=== PATIENT | female | born 1990 | race Caucasian/White ===

== ENCOUNTER 2017-10-15 10:40 | Emergency (ER) | payer OTHER ==
[2017-10-15] MEDS ORDERED: ONDANSETRON 4 MG/2 ML VIAL IVP ONE (11:02)
[2017-10-15] MEDS ORDERED: NS 1,000 ML IV ONE (11:02)
[2017-10-15 11:03] VITALS: RESP 16; TEMP 97.7
--- NOTE | 2017-10-15 11:24 | EDPHY ---
H & P Stated Complaint: 0 PT. states vomited x1 thinks d/t pain?,chills. denies fever/diarrhea Time Seen by Provider: 10/15/17 11:02 HPI/ROS: This patient reports onset of epigastric abdominal pain last night at 10:30 p.m. 3 hr after eating burger and fries. She states that the pain is severe and colicky in nature 10/10 peak intensity until around 3:30 a.m. when the pain diminish to its current 5/10 without intervention. She is then able to sleep and came in for evaluation of her ongoing symptoms described as achy and crampy 5/10 radiating to her back. She had 1 episode of vomiting last night that she attributes to the severe pain but has no nausea currently. She does have anorexia. Her last meal was dinner last night. She drove herself here by private vehicle for evaluation. ROS: No fevers or chills. No other constitutional symptoms HEENT: No URI symptoms. pulmonary: No cough shortness breath Cardiovascular: No lightheadedness or chest pain GI: She has had similar episodes of pain of lesser intensity periodic early in the past. She has constipation with no bowel movement over the past few days and this is not uncommon for her. She endorses a history of IBS. She states this causes her to have irregular bowels with occasional loose stools occasional constipation alternating. : No urinary symptoms. Last menstrual. Normal timing. Integumentary: No skin rash Neuro: No complaints Psychiatric: No complaints Complete review of symptoms is otherwise negative Source: Patient Exam Limitations: No limitations - Personal History LMP (Females 10-55): Extended Cycle BCP/Inj Current Tetanus Diphtheria and Acellular Pertussis (TDAP): Yes - Medical/Surgical History PMH: Obesity IBS Hx Asthma: No Hx Chronic Respiratory Disease: No Hx Diabetes: No Hx Cardiac Disease: No Hx Renal Disease: No Hx Cirrhosis: No Hx Alcoholism: No Hx HIV/AIDS: No Hx Splenectomy or Spleen Trauma: No Other PMH: med hx-none. 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 Eyes: Pupils equal and round no pallor or injection. ENT, Mouth: Mucous membranes moist. Respiratory: There are no retractions, lungs are clear to auscultation. Cardiovascular: Regular rate and rhythm. Gastrointestinal: Hypoactive bowel sounds with mild epigastric tenderness with no guarding or rebound. No organomegaly Back: No CVA tenderness Neurological: GCS 15 Skin: Warm and dry, no rashes. Musculoskeletal: Neck is supple nontender. Extremities are symmetrical, full range of motion. Psychiatric: Mood and affect are normal. DIFFERENTIAL DIAGNOSIS: After history and physical exam differential diagnosis was considered for pancreatitis, cholecystitis, gastritis, hepatitis, IBS, ureteral stone, Constitutional: Initial Vital Signs Temperature (C) 36.5 C 10/15/17 10:47 Heart Rate 96 10/15/17 10:47 Respiratory Rate 16 10/15/17 10:47 Blood Pressure 125/70 H 10/15/17 10:47 O2 Sat (%) 96 10/15/17 10:47 O2 Delivery Mode Room Air Allergies/Adverse Reactions: No Known Allergies Allergy (Verified 10/15/17 10:46) Home Medications: Medication Instructions Recorded Etonogestrel [Nexplanon] 10/15/17 HYOSCYAMINE SULFATE [LEVSIN-SL] 0.125 - 0.25 mg SL Q6 PRN #20 10/15/17 tab.subl Venlafaxine HCl 10/15/17 Medical Decision Making ED Course/Re-evaluation: IV normal saline bolus. Patient declined analgesics at this time with current pain level of 5/10 After review of her labs-normal LFTs chemistries and lipase, negative HCG mild leukocytosis I spoke with patient regarding the results. She does have 510 white cells and 2+ bacteria on her UA but no UTI symptoms. Will send this for culture since she has no active urinary symptoms an borderline findings on urinalysis terms of infection. I do not think she has active biliary disease given completely normal biliary labs/LFTs. I counseled regarding this. Rather , I suspect that she may have IBS flare and/or mild viral illness. Will send her home on Levsin for symptoms in light diet until she improves. She understands need to return should she develop any worsening symptoms despite the treatment plan. I also referred her to Dr. Quintanilla if [id number] parker for any ongoing symptoms - Data Points Laboratory Results: Laboratory Results 10/15/17 11:25 10/15/17 11:25 10/15/17 10/15/17 10/15/17 12:02 11:25 11:25 WBC RBC Hgb Hct MCV MCH MCHC RDW Plt Count MPV Neut % (Auto) Lymph % (Auto) [place] % (Auto) Eos % (Auto) Baso % (Auto) Nucleat RBC Rel Count Absolute Neuts (auto) Absolute Lymphs (auto) Absolute Monos (auto) Absolute Eos (auto) Absolute Basos (auto) Absolute Nucleated RBC Immature Gran % Immature Gran # Sodium 141 mEq/L mEq/L (134-144) Potassium 4.1 mEq/L mEq/L (3.5-5.2) Chloride 103 mEq/L mEq/L (97-110) Carbon Dioxide 24 mEq/l mEq/l (22-31) Anion Gap 14 mEq/L mEq/L (8-16) BUN 9 mg/dL mg/dL (7-23) Creatinine 0.6 mg/dL mg/dL (0.6-1.0) Estimated GFR > 60 Glucose 85 mg/dL mg/dL (70-100) Calcium 9.4 mg/dL mg/dL (8.5-10.4) Total Bilirubin 0.6 mg/dL mg/dL (0.1-1.4) AST 16 IU/L IU/L (14-46) ALT 28 IU/L IU/L (9-52) Alkaline Phosphatase 71 IU/L IU/L (38-126) Total Protein 7.4 g/dL g/dL (6.3-8.2) Albumin 3.9 g/dL g/dL (3.5-5.0) Lipase 61 IU/L IU/L (23-300) Beta HCG, Qual NEGATIVE Urine Color YELLOW Urine Appearance CLEAR Urine pH 7.5 (5.0-7.5) Ur Specific Carlotta 1.010 (1.002-1.030) Urine Protein NEGATIVE (NEGATIVE) Urine Ketones NEGATIVE (NEGATIVE) Urine Blood NEGATIVE (NEGATIVE) Urine Nitrate NEGATIVE (NEGATIVE) Urine Bilirubin NEGATIVE (NEGATIVE) Urine Urobilinogen 0.2 EU EU (0.2-1.0) Ur Leukocyte Esterase 1+ H (NEGATIVE) Urine RBC 3-5 /hpf H /hpf (0-3) Urine WBC 5-10 /hpf H /hpf (0-3) Ur Epithelial Cells 1+ /lpf /lpf (NONE-1+) Urine Bacteria 2+ /hpf H /hpf (NONE SEEN) Urine Mucus TRACE /lpf /lpf (NONE-1+) Urine Glucose NEGATIVE (NEGATIVE) 10/15/17 11:25 WBC 11.96 10^3/uL H 10^3/uL (3.80-9.50) RBC 5.22 10^6/uL 10^6/uL (4.18-5.33) Hgb 15.0 g/dL g/dL (12.6-16.3) Hct 43.0 % % (38.0-47.0) MCV 82.4 fL fL (81.5-99.8) MCH 28.7 pg pg (27.9-34.1) MCHC 34.9 g/dL g/dL (32.4-36.7) RDW 13.2 % % (11.5-15.2) Plt Count 404 10^3/uL H 10^3/uL (150-400) MPV 8.3 fL L fL (8.7-11.7) Neut % (Auto) 69.7 % % (39.3-74.2) Lymph % (Auto) 21.2 % % (15.0-45.0) [place] % (Auto) 7.1 % % (4.5-13.0) Eos % (Auto) 0.5 % L % (0.6-7.6) Baso % (Auto) 0.4 % % (0.3-1.7) Nucleat RBC Rel Count 0.0 % % (0.0-0.2) Absolute Neuts (auto) 8.33 10^3/uL H 10^3/uL (1.70-6.50) Absolute Lymphs (auto) 2.54 10^3/uL 10^3/uL (1.00-3.00) Absolute Monos (auto) 0.85 10^3/uL H 10^3/uL (0.30-0.80) Absolute Eos (auto) 0.06 10^3/uL 10^3/uL (0.03-0.40) Absolute Basos (auto) 0.05 10^3/uL 10^3/uL (0.02-0.10) Absolute Nucleated RBC 0.00 10^3/uL 10^3/uL (0-0.01) Immature Gran % 1.1 % % (0.0-1.1) Immature Gran # 0.13 10^3/uL H 10^3/uL (0.00-0.10) Sodium Potassium Chloride Carbon Dioxide Anion Gap BUN Creatinine Estimated GFR Glucose Calcium Total Bilirubin AST ALT Alkaline Phosphatase Total Protein Albumin Lipase Beta HCG, Qual Urine Color Urine Appearance Urine pH Ur Specific Carlotta Urine Protein Urine Ketones Urine Blood Urine Nitrate Urine Bilirubin Urine Urobilinogen Ur Leukocyte Esterase Urine RBC Urine WBC Ur Epithelial Cells Urine Bacteria Urine Mucus Urine Glucose Medications Given: Discontinued Medications Hyoscyamine Sulfate (Levsin, Hyomax-Sl) 0.125 mg PO EDNOW ONE Stop: 10/15/17 11:49 Last Admin: 10/15/17 12:06 Dose: 0.125 mg Sodium Chloride (Ns) 1,000 mls @ 0 mls/hr IV EDNOW ONE; Wide Open PRN Reason: Protocol Stop: 10/15/17 11:03 Last Admin: 10/15/17 11:43 Dose: 1,000 mls Ondansetron HCl (Zofran) 4 mg IVP EDNOW ONE Stop: 10/15/17 11:03 Last Admin: 10/15/17 11:45 Dose: Not Given Departure - Departure Disposition: Home, Routine, Self-Care Clinical Impression: Upper abdominal pain, History of IBS Condition: Good Instructions: Acute Abdominal Pain (ED) Additional Instructions: Diagnosis: Upper abdominal pain 2. History of IBS Your liver enzymes, electrolytes gallbladder and pancreatic labs are all normal today. Plan: Drink plenty fluids, light diet to feel improved Levsin if needed for any recurrence of crampy pain. Light diet until he feel improved Follow up with primary care physician for any ongoing symptoms or consider follow-up with parker- Review. Return for any significant worsening despite the treatment plan Referrals: Francine Chapa MD [Primary Care Provider] - As per Instructions Justo Quintanilla MD [Medical Doctor] - As per Instructions Prescriptions: HYOSCYAMINE SULFATE [LEVSIN-SL] 0.125 - 0.25 mg SL Q6 PRN #20 tab.subl PRN Reason: abdominal cramping
[2017-10-15 11:28] LABS: PLATELET COUNT 404 10^3/uL (150-400)
[2017-10-15] MEDS ORDERED: HYOSCYAMINE SULFATE 0.125 MG TAB PO ONE ×2 (11:48→12:42)
[2017-10-15 13:21] VITALS: BP 114/67; PULSE 75; O2SAT 97
== END 2017-10-15 13:18 | disposition home or self-care (01) ==
LOC: CED 10:40
DX: R10.10 Upper abdominal pain, unspecified (principal); E86.9 Volume depletion, unspecified; Z87.19 Personal history of other diseases of the digestive system
CPT/HCPCS: 80053-PO; 81003-PO; 81015-PO; 83690-PO; 84703-PO; 85025-PO

== ENCOUNTER 2018-01-21 08:57 | Emergency (ER) | payer OTHER ==
[2018-01-21] MEDS ORDERED: ONDANSETRON 4 MG/2 ML VIAL IVP ONE (09:12)
[2018-01-21] MEDS ORDERED: NS 1,000 ML IV ONE (09:12)
--- NOTE | 2018-01-21 09:21 | EDPHY ---
H & P Time Seen by Provider: 01/21/18 09:05 HPI/ROS: CHIEF COMPLAINT: Vomiting HISTORY OF PRESENT ILLNESS: 27-year-old female status post cholecystectomy 1 week ago presents with vomiting. Over the last week, she has had persistent watery diarrhea, 3 episodes daily. She has ongoing right upper quadrant pain, that is mild to moderate and has not worsened in the postoperative period. This morning, she developed multiple episodes of vomiting and inability tolerate oral fluids. She took Zofran and now feels better. No fever or chills. REVIEW OF SYSTEMS: Constitutional: No fever, no chills Eyes: No visual changes ENT: No sore throat Respiratory: No cough, no shortness of breath Cardiac: No chest pain Genitourinary: no dysuria Musculoskeletal: No leg pain or swelling Skin: No rash Neurological: No headache, no weakness Psychiatric: No depression Past Medical/Surgical History: Cholecystectomy Social History: No recent alcohol Smoking Status: Never smoked Physical Exam: General Appearance: Alert, pleasant Eyes: Pupils equal and round, no conjunctival pallor or injection ENT, Mouth: Mucous membranes moist Neck: Normal inspection Respiratory: Lungs are clear to auscultation Cardiovascular: Regular rate and rhythm Gastrointestinal: Abdomen is soft, surgical wounds are clean dry and intact, mild right upper quadrant tenderness, no peritoneal signs Neurological: A&O, nonfocal, normal gait Skin: Warm and dry Extremities: Normal inspection Psychiatric: Mood and affect normal Constitutional: Initial Vital Signs Temperature (C) 36.4 C 01/21/18 09:00 Heart Rate 88 01/21/18 09:00 Respiratory Rate 17 01/21/18 09:00 Blood Pressure 123/78 H 01/21/18 09:00 O2 Sat (%) 96 01/21/18 09:00 O2 Delivery Mode Room Air Allergies/Adverse Reactions: No Known Allergies Allergy (Verified 01/21/18 08:58) Home Medications: Medication Instructions Recorded Etonogestrel [Nexplanon] 10/15/17 HYOSCYAMINE SULFATE [LEVSIN-SL] 0.125 - 0.25 mg SL Q6 PRN #20 10/15/17 tab.subl Venlafaxine HCl 10/15/17 Effexor Xr 01/14/18 Medical Decision Making - Diagnostics Imaging Results: Imaging Impressions Abdomen CT 01/21/18 10:12 Impression: 1. Recent cholecystectomy postoperative changes. No evidence of abscess or biloma. 2. Negative appendix. Findings were communicated by telephone with Dr. SIRENA BLACK at 01/21/2018 12 :03 ED Course/Re-evaluation: This patient presents with vomiting and persistent right upper quadrant pain after cholecystectomy. IV normal saline 1 L and Zofran 4 mg IV given. Laboratory results reveal leukocytosis, LFT's slightly elevated, bili normal, discussed with patient and , will obtain CT to r/o abscess. Pt seen by Dr. Russo, he concurs. CT results discussed with the patient. The nausea has resolved. She continues to have right upper quadrant pain. Abdominal exam remains benign. Option for admission versus discharge home discussed with the patient. She prefers to go home. Abdominal pain precautions given. Discussed with Dr. Haider Russo, will f/u with pt in the office. Differential Diagnosis: Differential diagnosis includes though it is not limited to appendicitis, cholecystitis, diverticulitis, pyelonephritis, bowel perforation, small bowel obstruction. - Data Points Laboratory Results: Laboratory Results 01/21/18 09:30 01/21/18 09:30 01/21/18 01/21/18 01/21/18 09:30 09:30 09:20 WBC 20.71 10^3/uL H 10^3/uL (3.80-9.50) RBC 5.64 10^6/uL H 10^6/uL (4.18-5.33) Hgb 16.1 g/dL g/dL (12.6-16.3) Hct 47.1 % H % (38.0-47.0) MCV 83.5 fL fL (81.5-99.8) MCH 28.5 pg pg (27.9-34.1) MCHC 34.2 g/dL g/dL (32.4-36.7) RDW 13.4 % % (11.5-15.2) Plt Count 425 10^3/uL H 10^3/uL (150-400) MPV 8.5 fL L fL (8.7-11.7) Neut % (Auto) 88.3 % H % (39.3-74.2) Lymph % (Auto) 5.0 % L % (15.0-45.0) [place] % (Auto) 5.0 % % (4.5-13.0) Eos % (Auto) 0.0 % L % (0.6-7.6) Baso % (Auto) 0.4 % % (0.3-1.7) Nucleat RBC Rel Count 0.0 % % (0.0-0.2) Absolute Neuts (auto) 18.28 10^3/uL H 10^3/uL (1.70-6.50) Absolute Lymphs (auto) 1.03 10^3/uL 10^3/uL (1.00-3.00) Absolute Monos (auto) 1.04 10^3/uL H 10^3/uL (0.30-0.80) Absolute Eos (auto) 0.01 10^3/uL L 10^3/uL (0.03-0.40) Absolute Basos (auto) 0.08 10^3/uL 10^3/uL (0.02-0.10) Absolute Nucleated RBC 0.00 10^3/uL 10^3/uL (0-0.01) Immature Gran % 1.3 % H % (0.0-1.1) Immature Gran # 0.27 10^3/uL H 10^3/uL (0.00-0.10) Sodium 139 mEq/L mEq/L (135-145) Potassium 4.5 mEq/L mEq/L (3.5-5.2) Chloride 102 mEq/L mEq/L (97-110) Carbon Dioxide 24 mEq/l mEq/l (22-31) Anion Gap 13 mEq/L mEq/L (8-16) BUN 14 mg/dL mg/dL (7-23) Creatinine 0.7 mg/dL mg/dL (0.6-1.0) Estimated GFR > 60 Glucose 99 mg/dL mg/dL (70-100) Calcium 9.4 mg/dL mg/dL (8.5-10.4) Total Bilirubin 0.8 mg/dL mg/dL (0.1-1.4) Conjugated Bilirubin 0.5 mg/dL mg/dL (0.0-0.5) Unconjugated Bilirubin 0.3 mg/dL mg/dL (0.0-1.1) AST 116 IU/L H IU/L (14-46) ALT 150 IU/L H IU/L (9-52) Alkaline Phosphatase 96 IU/L IU/L (38-126) Total Protein 7.8 g/dL g/dL (6.3-8.2) Albumin 4.3 g/dL g/dL (3.5-5.0) Lipase 59 IU/L IU/L (23-300) Beta HCG, Qual NEGATIVE Medications Given: Discontinued Medications Sodium Chloride (Ns) 1,000 mls @ 0 mls/hr IV EDNOW ONE; Wide Open PRN Reason: Protocol Stop: 01/21/18 09:13 Last Admin: 01/21/18 09:26 Dose: 1,000 mls Ondansetron HCl (Zofran) 4 mg IVP EDNOW ONE Stop: 01/21/18 09:13 Last Admin: 01/21/18 09: Dose: 4 mg Departure - Departure Disposition: Home, Routine, Self-Care Clinical Impression: Abdominal pain Qualifiers: Abdominal location: right upper quadrant Qualified Code(s): R10.11 - Right upper quadrant pain Vomiting Qualifiers: Vomiting type: unspecified Vomiting Intractability: non-intractable Nausea presence: with nausea Qualified Code(s): R11.2 - Nausea with vomiting, unspecified Condition: Good Instructions: Acute Abdominal Pain (ED) Additional Instructions: Return for worsening symptoms, fever, persistent vomiting or any concerns. Referrals: Francine Chapa MD [Primary Care Provider] - As per Instructions Haider Russo MD [Medical Doctor] - As per Instructions (Call to make an appointment.)
[2018-01-21 09:37] LABS: PLATELET COUNT 425 10^3/uL (150-400)
[2018-01-21] MEDS ORDERED: IOPAMIDOL (ISOVUE-300) 100 ML BTL ONE (10:20)
[2018-01-21 12:47] VITALS: BP 112/66
--- NOTE | 2018-01-22 13:07 | GCON ---
[f rep st] CONSULTATION DATE OF CONSULTATION: 01/21/2018 CHIEF COMPLAINT: Nausea and vomiting. HISTORY OF PRESENT ILLNESS: This is a 27-year-old female who I took to the operating room last week for cholecystitis and she had an uneventful laparoscopic cholecystectomy. She had a 1-night hospital stay and was subsequently discharged home. Since that time, she states that she has for the most part, felt well, and was actually planning to go back to work the middle of this week. She called overnight, spoke with my partner, complaining of worsening nausea and vomiting, similar to her preoperative complaints. The fact that she was unable to take p.o., she was referred to Urgent Care Emergency Room and subsequently came to our emergency room for followup. Here in the ED she complains of nausea and vomiting and some vague abdominal pain, but really otherwise states that she feels well. She was eating fairly normal foods and having bowel function, all of which she states was normal prior to having the nausea and vomiting, which prompted her presentation today. Her pain is described as vague, nonradiating, better with IV hydration and narcotics , worse with oral intake, and it is very similar to the pain and symptoms she was experiencing prior to her operation. PAST MEDICAL HISTORY: Depression. PAST SURGICAL HISTORY: Laparoscopic cholecystectomy performed last week. CURRENT MEDICATIONS: Include Nexplanon, venlafaxine, and Effexor, in addition to oral oxycodone and Zofran as needed, status post cholecystectomy. SOCIAL HISTORY: She is a social drinker. Denies illicit drug use. Works for the hospital. FAMILY HISTORY: Noncontributory. REVIEW OF SYSTEMS: A full 10-point review was performed. PHYSICAL EXAMINATION: VITAL SIGNS: Temperature 36.4, blood pressure 123/78, heart rate 88, and she is 96% on room air. CONSTITUTIONAL: She is in no apparent distress. She does appear uncomfortable. EYES: Her pupils are equal , round, and reactive to light and accommodation. Her extraocular movements are intact. She has anicteric sclerae. EARS, NOSE, MOUTH, THROAT: She has dry mucous membranes. Her hearing is normal. She has normal dentition without any oral ulcers. CARDIOVASCULAR: She has a regular rate and rhythm without any murmurs. RESPIRATORY: She has no respiratory distress, rales, or rhonchi. GI: Her incision sites are covered with Dermabond and healing appropriately. She does have normoactive bowel sounds. She is otherwise soft. Minimally tender in the right upper quadrant without rebound tenderness or guarding. SKIN : Warm. Normal color. No rashes or abrasions. MUSCULOSKELETAL: Full strength. No tenderness. Normal joint range of motion. NEUROLOGIC: She is alert and oriented x3. Her cranial nerves 2-12 are intact. She has no weakness or numbness. PSYCH: She is interacting appropriately. She is not anxious or encephalopathic. LYMPH/HEME/IMMUNOLOGIC: She has no cervical, groin , or supraclavicular lymphadenopathy appreciated. LABORATORY DATA: Leukocytosis to 20,000 with a left shift. H and H are stable at 17 and 49. Chemistries are largely unremarkable. Her AST is mildly elevated at 116 and her ALT is mildly elevated at 150. Her bilirubin is normal. Her lipase is normal and her alkaline phosphatase is normal. IMAGING: The images of which were personally reviewed, is a CT scan of the abdomen and pelvis, which shows postoperative changes consistent with previous laparoscopic cholecystectomy. No fluid collections or free air. No other significant findings throughout the abdomen. ASSESSMENT AND PLAN: A 27-year-old female status post laparoscopic cholecystectomy with nausea and vomiting. Throughout her course in the emergency department, she received IV fluid hydration as well as pain medication , after we ruled out essentially all complications, status post laparoscopic cholecystectomy and she got some hydration. She actually felt well. She was by mouth challenged in the emergency department and subsequently sent home. I do not feel as though there is any missed bowel injury or any other significant findings given the reassuring exam and CT scan. Unclear as to what is causing her leukocytosis to 20,000, but I feel comfortable sending her home with close followup. We will plan to see her in the clinic early next week. I have discussed this with Dr. Askew as well as the patient. /[id number]/MODL MTDD
== END 2018-01-21 12:51 | disposition home or self-care (01) ==
DX: R10.11 Right upper quadrant pain (principal); R11.2 Nausea with vomiting, unspecified; E86.9 Volume depletion, unspecified; Z90.49 Acquired absence of other specified parts of digestive tract
CPT/HCPCS: 96374; J2405; Q9967

== ENCOUNTER 2019-01-12 09:40 | Inpatient (IN) | payer OTHER ==
[2019-01-12] MEDS ORDERED: MISOPROSTOL 200 MCG TAB PO PRN (09:59)
[2019-01-12] MEDS ORDERED: EPSOM SALT 454 GM TP PRN (09:59)
[2019-01-12] MEDS ORDERED: LIDOCAINE 1% 300 MG/30 ML SDV SC PRN (09:59)
[2019-01-12] MEDS ORDERED: AMMONIA AROMATIC 1 EACH AMP IH PRN (09:59)
[2019-01-12] MEDS ORDERED: OLIVE OIL 118 ML BTL MISC PRN (09:59)
[2019-01-12] MEDS ORDERED: OXYTOCIN/RINGERS LACTATE 1,000 ML IV PRN (09:59)
[2019-01-12] MEDS ORDERED: TERBUTALINE SULFATE 1 MG/ML VIAL IV PRN (09:59)
[2019-01-12] MEDS ORDERED: IBUPROFEN 600 MG TAB PO PRN (09:59)
[2019-01-12] MEDS ORDERED: LR 500 ML IV PRN (09:59)
[2019-01-12] MEDS ORDERED: PENICILLIN G POTASSIUM 5,000,000 UNIT in D5W 150 ML IV ONE (09:59)
[2019-01-12] MEDS ORDERED: OXYTOCIN/RINGERS LACTATE 500 ML IV SCH (10:00)
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
[2019-01-12 11:22] LABS: PLATELET COUNT 303 10^3/uL (150-400)
[2019-01-12] MEDS: LR 1,000 ML IV PRN ×2 (11:25→22:32)
[2019-01-12] MEDS ORDERED: LIDOCAINE 1% 300 MG/30 ML SDV ONE (12:35)
[2019-01-12] MEDS ORDERED: OLIVE OIL 118 ML BTL MISC ONE (12:35)
[2019-01-12] MEDS ORDERED: AMMONIA AROMATIC 1 EACH AMP IH ONE (12:35)
[2019-01-12] MEDS ORDERED: TERBUTALINE SULFATE 1 MG/ML VIAL ONE (12:35)
[2019-01-12] MEDS ORDERED: MISOPROSTOL 200 MCG TAB ONE (12:36)
[2019-01-12] MEDS ORDERED: OXYTOCIN 10 UNIT/ML VIAL ONE (12:36)
[2019-01-12] MEDS ORDERED: ACETAMINOPHEN 500 MG TAB PO PRN (12:59)
--- NOTE | 2019-01-12 14:06 | OBPROG ---
Labor Progress Note Assessment/Plan: Assessment: 28yo with IUP@ 39-1wks IOL 2/2 Pre-eclampsia GBS + cat 1 FHR tracing Plan: cont IV abx AROM once 2nd dose completed closely monitor BP reassess PRN Subjective/Intrapartum Course: 01/12/19 14:30 Pt doing well, reports mild EAST, not relieved with Tylenol. She reports mild abdominal tightening but overall doing well. Objective: 01/12/19 10:45 01/12/19 10:45 Uric Acid 4.9 mg/dL (2.5-6.8) 01/12/19 10:45 Total Bilirubin 0.4 mg/dL (0.1-1.4) 01/12/19 10:45 Conjugated Bilirubin 0.4 mg/dL (0.0-0.5) 01/12/19 10:45 Unconjugated Bilirubin 0.0 mg/dL (0.0-1.1) 01/12/19 10:45 AST 16 IU/L (14-46) 01/12/19 10:45 ALT 21 IU/L (9-52) 01/12/19 10:45 Lactate Dehydrogenase 521 IU/L (313-618) 01/12/19 10:45 - Contraction Pattern Assessment Current Contraction Pattern: Irregular - FHR Assessment Yap FHR (bpm): 125 FHR Pattern Variability: Moderate FHR Category: 1 Oxytocin Orders Assessment - Pre-Induction/Augmentation Assessment Gestational Age: 39 week(s) and 1 day(s) ICD10 Worksheet Patient Problems: Problems Problem Status Onset 39 weeks gestation of Acute Mild pre-eclampsia affecting second Acute
[2019-01-12] MEDS: PENICILLIN G POTASSIUM 2,500,000 UNIT in D5W 150 ML IV SCH ×3 (15:23→19:19)
--- NOTE | 2019-01-12 18:19 | OBPROG ---
Labor Progress Note Assessment/Plan: Assessment: 28yo with IUP@ 39-1wks IOL 2/2 Pre-eclampsia GBS + cat 1 FHR tracing AROM for clear fluid Plan: cont IV abx closely monitor BP cont pitocin reassess PRN 01/12/19 18:19 Subjective/Intrapartum Course: 01/12/19 14:30 Pt doing well, reports mild EAST, not relieved with Tylenol. She reports mild abdominal tightening but overall doing well. Objective: 01/12/19 10:45 01/12/19 10:45 Uric Acid 4.9 mg/dL (2.5-6.8) 01/12/19 10:45 Total Bilirubin 0.4 mg/dL (0.1-1.4) 01/12/19 10:45 Conjugated Bilirubin 0.4 mg/dL (0.0-0.5) 01/12/19 10:45 Unconjugated Bilirubin 0.0 mg/dL (0.0-1.1) 01/12/19 10:45 AST 16 IU/L (14-46) 01/12/19 10:45 ALT 21 IU/L (9-52) 01/12/19 10:45 Lactate Dehydrogenase 521 IU/L (313-618) 01/12/19 10:45 - SVE Dilation (cm): 3 Effacement (%): 50 Station: -2 Membranes: AROM Amniotic Fluid Color: Clear - Contraction Pattern Assessment Current Contraction Pattern: Irregular - FHR Assessment Yap FHR (bpm): 135 FHR Pattern Variability: Moderate FHR Category: 1 - Procedures Non-surgical Procedures: Amniotomy Oxytocin Orders Assessment - Pre-Induction/Augmentation Assessment Gestational Age: 39 week(s) and 1 day(s) ICD10 Worksheet Patient Problems: Problems Problem Status Onset 39 weeks gestation of Acute Mild pre-eclampsia affecting second Acute
[2019-01-12] MEDS ORDERED: HYDROCORTISONE 0.5% CREAM TP PRN (23:22)
[2019-01-12] MEDS ORDERED: SIMETHICONE 80 MG TAB CHEW PO PRN (23:22)
--- NOTE | 2019-01-12 23:25 | OBDEL ---
Info Type: Vaginal Presentation at Delivery: Vertex L&D Analgesia/Anesthesia Type: Nitrous GBS+: Yes Intrapartum Medications: Generic Name Dose Route Start Last Admin Trade Name Freq PRN Reason Stop Dose Admin Acetaminophen 1,000 mg 01/12/19 12:59 01/12/19 13:26 Tylenol PO 07/11/19 13:59 1,000 mg Q8HRS PRN Administration Headache Lactated Ringer's 1,000 mls @ 0 mls/hr 01/12/19 09:59 01/12/19 11:25 Lr IV 01/13/19 09:58 1,000 mls PRN PRN Administration SEE PROTOCOL CONDITIONS Protocol Per Protocol Penicillin G Potassium 2,500, 155 mls @ 155 mls/hr 01/12/19 14:00 01/12/19 19 :19 000 unit/ Dextrose IV 02/11/19 13:59 155 mls Q4H MAZIN Administration Protocol Discontinued Medications Generic Name Dose Route Start Last Admin Trade Name Freq PRN Reason Stop Dose Admin Penicillin G Potassium 5,000, 160 mls @ 160 mls/hr 01/12/19 09:59 01/12/19 11 :16 000 unit/ Dextrose IV 01/12/19 10:58 160 mls ONCE ONE Administration Protocol - Hospital Course Intrapartum: 01/12/19 14:30 Pt doing well, reports mild EAST, not relieved with Tylenol. She reports mild abdominal tightening but overall doing well. Indications for Delivery: Preeclampsia Mild Vaginal Delivery - Delivery Provider Delivery Physician/CNM: Yancy Craig - Labor and Delivery Onset of Contractions Date: 01/12/19 Onset of Contractions Time: 18:00 Onset of Contractions Type: Induced Rupture of Membranes Date: 01/12/19 Rupture of Membranes Time: 17:30 Rupture of Membranes Type: Artificial Amniotic Fluid Color: Clear Dilation Complete Date: 01/12/19 Dilation Complete Time: 22:48 Placenta Delivery Date: 01/12/19 Placenta Delivery Time: 23:02 Total Hours of Labor: 5 Non-surgical Procedures: Amniotomy Vaginal Sponge Count Correct: Yes Vaginal Needle Count Correct: Yes Vaginal Sweep Performed: Yes EBL: 200 Delivery Events: None - Medications Labor Augmentation/Induction Methods Used: Pitocin Labor Augmentation/Induction Indication: Other (Specify) (Pre-eclampsia) Data ANDIE: 01/18/19 Gestational Age: 39 week(s) and 1 day(s) Yap Delivery Date: 01/12/19 Delivery Time: 22:54 Sex of : Female Score (1 Min): 8 Score (5 Min): 9 ICD10 Worksheet Patient Problems: Problems Problem Status Onset 39 weeks gestation of Acute GBS (group B Streptococcus carrier), +RV culture, currently Acute Mild pre-eclampsia affecting second Acute (spontaneous vaginal delivery) Acute - ICD10 Problem Qualifiers (1) (spontaneous vaginal delivery) (2) GBS (group B Streptococcus carrier), +RV culture, currently
[2019-01-13] MEDS: ACETAMINOPHEN 325 MG TAB PO PRN ×3 (00:21→22:17)
[2019-01-13] MEDS: PENICILLIN G POTASSIUM 2,500,000 UNIT in D5W 150 ML IV SCH (02:09)
[2019-01-13] MEDS: IBUPROFEN 600 MG TAB PO PRN ×3 (08:50→23:40)
[2019-01-13] MEDS: DOCUSATE SODIUM 100 MG CAP PO PRN (08:50)
--- NOTE | 2019-01-13 16:23 | OBPP ---
Progress Note Assessment/Plan: Assessment: 28 y/o P1 s/p ppd #1 Pre eclampsia without severe features VSS - BPs wnl Plan: Routine pp care Anticipate d/c tomorrow 01/13/19 17:38 Subjective/ Course: Feeling good. Was able to get some rest last night. going well. Pain controlled with oral pain meds, bleeding wnl, tolerating activity/reg diet. Voiding without difficulty. 01/13/19 17:40 Objective: 01/12/19 10:45 01/12/19 10:45 Uric Acid 4.9 mg/dL (2.5-6.8) 01/12/19 10:45 Total Bilirubin 0.4 mg/dL (0.1-1.4) 01/12/19 10:45 Conjugated Bilirubin 0.4 mg/dL (0.0-0.5) 01/12/19 10:45 Unconjugated Bilirubin 0.0 mg/dL (0.0-1.1) 01/12/19 10:45 AST 16 IU/L (14-46) 01/12/19 10:45 ALT 21 IU/L (9-52) 01/12/19 10:45 Lactate Dehydrogenase 521 IU/L (313-618) 01/12/19 10:45 Temp Pulse Resp BP Pulse Ox 98.4 C H 67 13 138/81 H 95 01/13/19 09:30 01/13/19 09:30 01/13/19 09:30 01/13/19 09:30 01/13/19 09:30 Uterine Position/Fundal Height: Umbilicus -1 Uterine Tone: Firm
[2019-01-14] MEDS: IBUPROFEN 600 MG TAB PO PRN ×2 (05:29→11:23)
[2019-01-14] MEDS: ACETAMINOPHEN 325 MG TAB PO PRN (05:29)
[2019-01-14 09:04] VITALS: BP 124/83
[2019-01-14] MEDS ORDERED: SERTRALINE HCL 50 MG TAB PO SCH (09:30)
--- NOTE | 2019-01-14 09:36 | OBGCSDC ---
General Delivery Information - General Info : 2 Para: 2 Abortions: 0 Type: Vaginal L&D Analgesia/Anesthesia Type: Nitrous Admission Date: 01/12/19 Labs: Patient ABO/Rh TNP 01/12/19 10:45 Hct 40.8 % (38.0-47.0) 01/12/19 10:45 - Hospital Course Intrapartum: 01/12/19 14:30 Pt doing well, reports mild EAST, not relieved with Tylenol. She reports mild abdominal tightening but overall doing well. : Feeling good. Was able to get some rest last night. going well. Pain controlled with oral pain meds, bleeding wnl, tolerating activity/reg diet. Voiding without difficulty. 01/13/19 17:40 01/14/19 09:34 S) Pt doing well, reports min pain and bleeding. she is ambulating and voiding without difficulty. She is . She desires discharge home today. Denies h/a, visual changes or epigastric pain O) VSS, afebrile constitutional: WNWF, A&Ox3 HEENT: normocephalic, atraumatic, supple Heart: RRR, No murmur Chest: CTA-B Abdomen: Soft, nontender Uterus: Firm at U-2 Lochia: Minimal rubra Perineum: Intact, healing well Extremities: Trace edema, and negative Angelita's sign Neuro: Grossly normal A) 28 year-old P1 S/P PPD#2 Pre eclampsia without severe features - BPs pp have been running 130s/80s P) Discharge home today Continue Pelvic rest x6wks Discussed danger signs (infection, preeclampsia, depression, heavy bleeding, etc) RTO in 1 week for BP check, 2/4/6 weeks Vaginal - Delivery Provider Delivery Physician/CNM: Yancy Craig - Diagnosis Labor: Induced Rupture of Membranes Type: Artificial Amniotic Fluid Color: Clear Delivery Events: None - Procedures Non-surgical Procedures: Amniotomy - Delivery Non-surgical Procedures: Amniotomy EBL: 200 Data ANDIE: 01/18/19 Gestational Age: 39 week(s) and 3 day(s) Yap Delivery Date: 01/12/19 Delivery Time: 22:54 Sex of : Female [place] Weight (gm): 3454 kg Score (1 Min): 8 Score (5 Min): 9 Discharge Information - Discharge Information Prescriptions: Ibuprofen [Motrin (*)] 600 mg PO Q6HRS PRN #40 tab PRN Reason: Pain, Mild Able To Take Po Docusate Sodium [Colace 100 MG (*)] 100 mg PO BID PRN #60 cap PRN Reason: Constipation Sertraline HCl [Zoloft 50mg (*)] 50 mg PO DAILY #30 tab Condition: Good
[2019-01-14] MEDS: DOCUSATE SODIUM 100 MG CAP PO PRN (11:23)
== END 2019-01-14 12:53 | disposition home or self-care (01) | DRG 807 ==
LOC: FLD 09:40 → FOB 01-13 01:36
PROVIDERS: ADMIT Advanced Practice Midwife; ATTEND Advanced Practice Midwife
PROC: 10E0XZZ Delivery of Products of Conception, External Approach (ICD-10-PCS; principal; 2019-01-12)
PROC: 10907ZC Drainage of Amniotic Fluid, Therapeutic from Products of Conception, Via Natural or Artificial Opening (ICD-10-PCS; principal; 2019-01-12)
PROC: 3E033VJ Introduction of Other Hormone into Peripheral Vein, Percutaneous Approach (ICD-10-PCS; principal; 2019-01-12)
DX: O14.04 Mild to moderate pre-eclampsia, complicating childbirth (principal); Z37.0 Single live birth; O99.824 Streptococcus B carrier state complicating childbirth; Z3A.39 39 weeks gestation of pregnancy
CPT/HCPCS: 86870-90; 99001-90; J2540; J2590; J3105